=== PATIENT | female | born 1990 | race Caucasian/White ===

== ENCOUNTER 2020-09-10 23:57 | Day surgery (SDC) | payer BC, OTHER ==
[~2020-09-10] VITALS: Ht 175.3 cm; Wt 64.4 kg
[~2020-09-10 23:57] MED LIST: COLACE 100MG C100 MG PO; IBUPROFEN600 MG PO; LORTAB 5-325 M1 EACH PO; PRENATABS RX T1 EACH PO
[2020-09-11 01:41] LABS: RED BLOOD COUNT 4.51 M/UL (4.00-5.10); WHITE BLOOD COUNT 16.1 K/UL (4.5-11.0)
[2020-09-11 02:00] LABS: BUN/CREATININE RATIO 17 (0-10)
[2020-09-11] MEDS ORDERED: LINZESS72 MCG PO (04:23)
[2020-09-11] MEDS ORDERED: HYDROCODON-ACE1 EAC2 PO (09:50)
[2020-09-11] MEDS ORDERED: COLACE100 MG PO (09:50)
[2020-09-11] MEDS ORDERED: IBUPROFEN600 MG PO (13:24)
== END 2020-09-11 10:55 | disposition home or self-care (01) ==
LOC: ER1 23:57 → CDU 09-11 03:22 → ER1 09-11 03:22 → OR 09-11 07:40 → CDU 09-11 10:54 → OR 09-11 10:55 → CDU 09-16 10:30
PROVIDERS: Emergency Medicine; Surgery
PROC: 0DTJ4ZZ Resection of Appendix, Percutaneous Endoscopic Approach (ICD-10-PCS; principal; 2020-09-11 08:13)
DX: K35.80 Unspecified acute appendicitis (principal); J45.909 Unspecified asthma, uncomplicated; Z20.822 Contact with and (suspected) exposure to COVID-19; Z79.899 Other long term (current) drug therapy
CPT/HCPCS: 80053; 81001; 83605; 84703; 85025; 87040; 96374; 96375; 99285; G0378; J0690; J1100; J2001; J2250; J2270; J2405; J2704; J2710; J3010; J7030; J7120; Q9967; U0002